=== PATIENT | male | born 1960 | race Caucasian/White ===

== ENCOUNTER 2017-04-28 19:53 | Inpatient (IN) ==
[2017-04-28] MEDS ORDERED: Aspirin 81 MG TAB.CHEW PO ONE (20:15)
[2017-04-28] MEDS ORDERED: Ondansetron 4 MG/2 ML VIAL IVP ONE (20:21)
[2017-04-28] MEDS ORDERED: Nitroglycerin 0.4 MG TAB.SUBL SL ONE (20:22)
[2017-04-28 20:24] LABS: Basophils # 0.1 K/mcL (0.0-0.2); Basophils % 0.6 %; Eosinophils # 0.2 K/mcL (0.0-0.6); Eosinophils % 2.2 %; Hematocrit 45.9 % (37.5-50.1); Hemoglobin 15.8 g/dL (12.9-16.9); Immature Granulocytes % 0.3 % (0-4); Lymphocytes # 0.8 K/mcL (0.6-4.6); Lymphocytes % 9.9 %; Mean Corpuscular HGB Conc 34.4 g/dL (31.6-35.5); Mean Corpuscular Hemoglobin 33.7 pg (28.0-33.3); Mean Corpuscular Volume 97.9 fL (83.0-100.0); Mean Platelet Volume 8.8 fL (9.4-12.4); Monocytes # 0.7 K/mcL (0.0-1.3); Monocytes % 9.3 %; Neutrophils # 6.1 K/mcL (1.6-8.9); Platelet Count 245 K/mcL (140-400); Red Blood Count 4.69 M/mcL (4.19-5.50); Segmented Neutrophils % 77.7 %
[2017-04-28] MEDS: Nitroglycerin 0.4 MG TAB.SUBL SL PRN ×3 (20:26→20:36)
--- NOTE | 2017-04-28 20:31 | Emergency Department Note ---
START Narrative - START START: I examined this patient and my medical decision-making was reviewed with the Resident Physician. I agree with the documented findings, disposition and treatment plan as described except to the extent set forth below. Patient was independently seen and evaluated by myself. Patient was seen with the emergency medicine resident Trey Spence. Please see copy of her notes for details of this ED encounter management and disposition. Briefly: A 57-year-old male smoker diabetic since with neck pain and fatigue. No radiation to the arms. Never had cardiology follow-up for stress test. The HEART score is at 5 which is moderate risk. EKG shows nonspecific changes. He took an aspirin earlier in the day. Patient's systolic is 220 which is much more elevated than this patient ever experienced. Patient will get nitroglycerin to treat for anginal equivalent troponin screening labs and chest x-ray with admission anticipated. Providing 30 minutes critical care service this patient. Admission disposition pending
--- NOTE | 2017-04-28 20:31 | Emergency Department Note ---
Disposition Clinical Impression: Atypical angina Disposition: Admitted As Inpatient Condition: Fair Forms: ED Satisfaction Letter, Work/School Release Time of Disposition: 21:08 Chest Pain HPI - General Chief Complaint: ED General Medical Stated Complaint: Hypertension Time Seen by Provider: 04/28/17 20:06 Source: patient Mode of arrival: ambulatory Limitations: no limitations Vital Signs Reviewed: Yes Nursing Notes Reviewed: Yes - History of Present Illness HPI Narrative: 57-year-old male presents to the ED for high blood pressure. After talking the patient more they state that he has had this left-sided neck pain as well as nausea and vomiting starting today. He has vomited multiple times and is very nauseous. They state that his blood pressure is normally well stable as it is 120/[address] yesterday. They state there is been no new stressors. They state he only takes lisinopril for his blood pressure. He has never seen a facing cutting machine operator or ever had a cardiac stress tests or ever had a heart echo. Patient states she is not having any chest pain only this left- sided neck pain. He is not having any pain going into the arms. He states his high blood pressure was 220/120. As they decided to bring him in. He says he has never had this pain before. There is a family history of acute coronary syndrome from both of his parents at around 50 or 61 years old. Patient does have diabetes high cholesterol as well as COPD. Patient's been taking his medications as prescribed. Patient's not having any other symptoms including headache, blurry vision, abdominal pain, pain with urination, back pain, changes in bowel movements, pain or tingling going down the arms or legs or any generalized numbness, fevers. Severity scale (1-10): 0 - Related Data Allergies Allergy/AdvReac Type Severity Reaction Status Date / Time No Known Allergies Allergy Verified 04/28/17 20:02 Review of Systems: 10 point review of systems done and negative unless otherwise stated in history of present illness. All systems ED: reviewed and negative except as stated. Review of Systems: As Per HPI Chest Pain PMH - Past Medical History Medical history: Reports: COPD, diabetes, GERD, hyperlipidemia, hypertension Psychiatric history: Reports: no psych history - Social History Smoking Status: Former smoker Alcohol use: Reports: heavy, recent Drug use: Reports: marijuana Physical Exam - General General appearance: alert, in no apparent distress - Head Head exam: atraumatic, normocephalic, normal inspection - Eye Eye exam: Present: normal appearance, PERRL, EOMI - ENT ENT exam: normal exam, normal oropharynx, mucous membranes moist - Chest Chest inspection: Present: normal inspection, symmetric chest wall rise. Absent : tenderness - Respiratory Respiratory exam: Present: normal lung sounds bilaterally. Absent: respiratory distress, wheezes, stridor, accessory muscle use, prolonged expiratory phase - Cardiovascular Cardiovascular exam: Present: regular rate, normal rhythm, normal heart sounds - Abdominal Exam Abdominal exam: Present: soft, Non-Tender, normal bowel sounds. Absent: tenderness, distention, guarding, rebound, rigidity - Extremities Exam Extremities exam: Present: normal inspection, full ROM. Absent: tenderness, pedal edema - Expanded Lower Extremity Exam Neurovascular/Tendon exam: Absent: motor deficit, sensory deficit, tendon deficit Gait: observed and normal - Back Exam Back exam: Present: normal inspection, full ROM. Absent: tenderness, CVA tenderness (R), CVA tenderness (L) - Neurological Exam Neurological exam: Present: alert, oriented X3 - Skin Skin exam: Present: warm, dry, intact, normal color Course Course Narrative: 57-year-old male presents the ED with hypertension. After getting more the story this seems more like a chest pain/ACS workup. Patient did have some anginal signs of left neck pain as well as nausea and vomiting that were worrisome. He has never had a cardiac evaluation. We will do basic chest pain workup including CBC, BMP, coags, troponin as well as an EKG and chest x-ray. Patient artery took 325 of chewable aspirin at home so we will not give him here. We will give him a sublingual nitroglycerin to help with the neck pain as well as with his blood pressure. We will place an IV. Patient's most likely disposition will be admission for a chest pain rule out. Vital Signs Temperature 97.5 F L 04/28/17 19:57 Pulse Rate 86 04/28/17 19:57 Respiratory Rate 16 04/28/17 19:57 Blood Pressure 213/124 04/28/17 19:57 O2 Sat by Pulse Oximetry 96 04/28/17 19:57 Temperature 97.5 F L 04/28/17 19:57 Pulse Rate 83 04/28/17 20:36 Respiratory Rate 18 04/28/17 20:36 Blood Pressure 166/102 04/28/17 20:36 O2 Sat by Pulse Oximetry 95 04/28/17 20:36 Oxygen Delivery Oxygen Delivery Room Air Chest Pain - MDM Narrative Medical decision making narrative: 57-year-old male presents the ED complaining of left-sided neck pain as well as nausea and vomiting and hypertension. He states his blood pressure was 220/120 at home he only takes lisinopril and took his normal medications. He states there is been no new stressors in his life. His blood pressure was normal as of yesterday at 120/80. Patient states he is a diabetic as well as having hyperlipidemia and diabetes. Patient is very well controlled and takes all his medications. Patient states this neck pain started on left side on their way to the hospital. He did vomit multiple times there was no preceding illnesses. No one else around him is sick. He did almost vomit while here in the emergency department. After talking to him this seems more like an acute coronary syndrome workup rather than a hypertensive workup. So we did get chest pain labs and imaging which all came back negative including a normal troponin. We also chest x-ray which was normal. EKG showed no acute changes. We gave him sobering will nitroglycerin that did help lower his blood pressure to 160/105 as well as start an IV. Patient took 325 mg aspirin prior to arrival that he had. We also gave him Zofran for his nausea. Due to patient's heart score being 5 and the story being concerning we felt that admission was warranted for this patient. Family and patient both agree. I spoke with the hospitalist Dr. Acevedo who agreed to admit the patient to their service for chest pain rule out. Patient is admitted to their service in stable condition. Chest X-Ray 04/28/17 20:16 IMPRESSION: No acute cardiopulmonary disease. D/ / Alfonso Benítez MD / Alfonso Benítez MD Interpreting Provider: Alfonso Benítez MD - Medical Records Medical records reviewed: Yes I reviewed the patient's medical records. - Lab Data Lab results reviewed: Yes I reviewed the patient's lab results. Result diagrams: 04/28/17 20:15 04/28/17 20:15 Lab Results 04/28/17 04/28/17 04/28/17 Range/Units 20:02 20:15 20:15 WBC (4.3-11.1) K/mcL RBC (4.19-5.50) M/mcL Hgb (12.9-16.9) g/dL Hct (37.5-50.1) % MCV (83.0-100.0) fL MCH (28.0-33.3) pg MCHC (31.6-35.5) g/dL RDW (11.5-14.5) % Plt Count (140-400) K/mcL MPV (9.4-12.4) fL Immature Gran % (0-4) % Seg Neutrophils % % Lymphocytes % % Monocytes % % Eosinophils % % Basophils % % Neutrophils # (1.6-8.9) K/mcL Lymphocytes # (0.6-4.6) K/mcL Monocytes # (0.0-1.3) K/mcL Eosinophils # (0.0-0.6) K/mcL Basophils # (0.0-0.2) K/mcL PT 11.9 (9.4-12.1) Seconds INR 1.1 APTT 25.3 L (26.0-36.0) Seconds Sodium (136-145) mEq/L Potassium (3.5-4.5) mEq/L Chloride (98-109) mEq/L Carbon Dioxide (19-29) mEq/L BUN (8-26) mg/dL Creatinine (0.72-1.25) mg/dL Est GFR ( Amer) (> 60) Est GFR (Non-Af Amer) (> 60) BUN/Creatinine Ratio (6-26) Glucose (70-99) mg/dL POC Glucose 114 H (58-89) Calculated Osmolality (280-300) Calcium (8.6-10.8) mg/dL Troponin I (0-0.03) ng/mL B-Natriuretic Peptide 12 (0-100) pg/mL 04/28/17 04/28/17 04/28/17 Range/Units 20:15 20:15 20:15 WBC 7.8 (4.3-11.1) K/mcL RBC 4.69 (4.19-5.50) M/mcL Hgb 15.8 (12.9-16.9) g/dL Hct 45.9 (37.5-50.1) % MCV 97.9 (83.0-100.0) fL MCH 33.7 H (28.0-33.3) pg MCHC 34.4 (31.6-35.5) g/dL RDW 13.0 (11.5-14.5) % Plt Count 245 (140-400) K/mcL MPV 8.8 L (9.4-12.4) fL Immature Gran % 0.3 (0-4) % Seg Neutrophils % 77.7 % Lymphocytes % 9.9 % Monocytes % 9.3 % Eosinophils % 2.2 % Basophils % 0.6 % Neutrophils # 6.1 (1.6-8.9) K/mcL Lymphocytes # 0.8 (0.6-4.6) K/mcL Monocytes # 0.7 (0.0-1.3) K/mcL Eosinophils # 0.2 (0.0-0.6) K/mcL Basophils # 0.1 (0.0-0.2) K/mcL PT (9.4-12.1) Seconds INR APTT (26.0-36.0) Seconds Sodium 140 (136-145) mEq/L Potassium 3.8 (3.5-4.5) mEq/L Chloride 100 (98-109) mEq/L Carbon Dioxide 28 (19-29) mEq/L BUN 22 (8-26) mg/dL Creatinine 0.85 (0.72-1.25) mg/dL Est GFR ( Amer) > 60 (> 60) Est GFR (Non-Af Amer) > 60 (> 60) BUN/Creatinine Ratio 26 (6-26) Glucose 136 H (70-99) mg/dL POC Glucose (58-89) Calculated Osmolality 295 (280-300) Calcium 9.5 (8.6-10.8) mg/dL Troponin I 0.00 (0-0.03) ng/mL B-Natriuretic Peptide (0-100) pg/mL - Radiology Data Radiology results reviewed: Yes I reviewed the patient's radiology results. - EKG Data EKG attestation: Yes I reviewed and interpreted this EKG. EKG results narrative: EKG done at 2014 reviewed by myself and attending shows normal sinus rhythm at a rate of 86, [place] interval 163, QRS 92, QTC 427 there is no acute ST changes, T- wave abnormalities, signs of hypertrophy or heart strain, heart block, WPW/ Brugada syndrome. There is no old EKG to compare at this time. Heart Score - Score History: Moderately Suspicious EKG: Non Specific repolarisation Disturbance Age: 45-65 Risk Factors: Equal/Greater than 3 risk factor or history of atherosclerotic disease Troponin: Less than normal limit HEART Score Total: 5
[2017-04-28 20:32] LABS: INR 1.1; Prothrombin Time 11.9 Seconds (9.4-12.1)
[2017-04-28 20:35] LABS: Activated Partial Thrombo Time 25.3 Seconds (26.0-36.0)
[2017-04-28 20:36] LABS: BUN/Creatinine Ratio 26 (6-26); Blood Urea Nitrogen 22 mg/dL (8-26); Calcium 9.5 mg/dL (8.6-10.8); Carbon Dioxide 28 mEq/L (19-29); Chloride 100 mEq/L (98-109); Glucose 136 mg/dL (70-99); Osmolality,Calculated 295 (280-300); Potassium 3.8 mEq/L (3.5-4.5); Sodium 140 mEq/L (136-145); eGFR For African Americans > 60 (> 60); eGFR For Non-African Americans > 60 (> 60)
[2017-04-28] MEDS ORDERED: *HR* HYDROcodone/Acet 5/325 mg TABLET PO PRN (21:39)
[2017-04-28] MEDS ORDERED: *HR* Morphine 2 MG/ML SYRINGE IVP PRN (21:39)
[2017-04-28] MEDS ORDERED: Ondansetron 4 MG/2 ML VIAL IVP PRN (21:39)
[2017-04-28] MEDS ORDERED: Naloxone 0.4 MG/ML INJ IVP PRN (21:39)
[2017-04-28] MEDS ORDERED: *HR* Dextrose 50 % in Water (Syg) 50 ML SYRINGE IVP PRN (22:06)
[2017-04-28] MEDS ORDERED: D5% in Water 1,000 ML IVC PRN (22:06)
[2017-04-28] MEDS ORDERED: Dextrose Gel 15 GM PO PRN ×2 (22:06)
--- NOTE | 2017-04-28 22:20 | Internal Med History&Physical ---
Date of Encounter: 04/28/17 Time of Encounter: 21:40 Assessment and Plan (1) Atypical angina Current visit: Yes Status: Acute Given risk factors (HTN, HLD, DM, obesity), HEART score: 4, will admit to rule out ACS monitor serial TNI f/u 2D echo nuclear stress test in am NPO after midnight nitroglycerin SL prn chest pain tele monitoring consider cardiology evaluation if the above tests are abnormal continue ASA, statin, BB (2) Hypertensive urgency Current visit: Yes Status: Acute likely secondary to noncompliance Will continue home dose of Lisinopril 20mg PO qd added Metoprolol 12.5mg PO BID Hydralazine 10mg IV q6h prn SBP>150 if remains hypertensive will adjust medications accordingly will closely monitor BP currently asymptomatic (3) Diabetes mellitus Current visit: Yes Status: Chronic Hold oral antihyperglycemic agents at this time sliding scale insulin algorithm monitor FS and BG ADA diet Qualifiers: Diabetes mellitus type: type 2 Diabetes mellitus complication status: with unspecified complications Diabetes mellitus residential insulin use: without rodent exterminator use Qualified Code(s): E11.8 - Type 2 diabetes mellitus with unspecified complications (4) Hyperlipidemia Current visit: Yes Status: Chronic continue statin therapy Qualifiers: Hyperlipidemia type: unspecified Qualified Code(s): E78.5 - Hyperlipidemia , unspecified (5) GERD (gastroesophageal reflux disease) Current visit: Yes Status: Chronic continue home dose of omeprazole Qualifiers: Esophagitis presence: esophagitis presence not specified Qualified Code(s) : K21.9 - Gastro-esophageal reflux disease without esophagitis (6) DVT prophylaxis Current visit: Yes Status: Acute Heparin SQ (7) Obesity (BMI 30-39.9) Current visit: Yes Status: Chronic (8) Dyspnea, unspecified Current visit: Yes Status: Chronic multifactorial-likely secondary to underlying COPD vs MAICO vs. anatomical abnormality will obtain 2D echo CT neck out any anatomical abnormality (pt complains of a lump sensation which has been making it difficult for him to breathe) O2 supplementation as needed Qualifiers: Dyspnea type: shortness of breath Qualified Code(s): R06.02 - Shortness of breath; R06.00 - Dyspnea, unspecified; R06.01 - Orthopnea Internal Medicine - H&P: HPI Chief complaint: nausea, vomiting, elevated BP Admitted From: Home Plans for Post Hospital Care: Home History of present illness: Mr. Colin is a 57 year old male with PMH of HTN, HLD, DM, COPD secondary to occupational exposure (asbestosis), GERD, and obesity who presents to the ER for evaluation of high blood pressure. Pt seen and examined with sis-in-law present at bedside. Pt reports of feeling nauseous and having one episode of vomiting throughout the day. The sis-in-law checked his blood pressure and he was found to have systolic pressure of 190, she gave him his home dose of Lisinopril and repeated the BP readings and found it to be over 200 which prompted their visit to the ER. He states on their way to the ER, he started to have left sided neck pain. He received nitroglycerin in the ER which resolved his pain and had a mild improvement in his BP. He also reports of chronically having difficulty breathing and states he is unable to lay flat. Reports of a lump in his neck that makes it difficult for him to breath. No other complains at this time. As per sis in law, patient is noncompliant with his home meds and smokes marijuana daily. Pt denies cigarette use and is refusing to quit marijuana use. Code status: full code Past Med Surg Social Fam HX - Past Medical History Medical history: COPD, diabetes, GERD, hyperlipidemia, hypertension Psychiatric history: no psych history - Social History Smoking Status: Former smoker Alcohol use: heavy, recent Drug use: marijuana Internal Medicine - H&P: Meds Atorvastatin 20 mg PO CONT 04/28/17 [History] Budesonide/Formoterol 160/4.5 [Symbicort 160/4.5] 04/28/17 [History] Lisinopril [Zestril] 20 mg PO DAILY 04/28/17 [History] Omeprazole [PriLOSEC] 20 mg PO DAILY 04/28/17 [History] Tiotropium [Spiriva] 04/28/17 [History] metFORMIN [Glucophage] 04/28/17 [History] 3 Allergy/AdvReac Type Severity Reaction Status Date / Time No Known Allergies Allergy Verified 04/28/17 20:02 All Systems PM: A 10-system review of systems was performed and is negative for pertinent findings except as documented above in the HPI. - Constitutional Constitutional: as per HPI - Constitutional Vitals: Temp Pulse Resp BP Pulse Ox 97.9 F 82 16 178/111 93 04/28/17 21:48 04/28/17 21:48 04/28/17 21:48 04/28/17 21:48 04/28/17 21:48 General appearance: Present: cooperative, A&O X 3, no acute distress, obese, answers questions appropriately - Head Head exam: Present: atraumatic, normocephalic - Eye Eye exam: Present: conjuntiva pink, sclera anicteric - Respiratory Respiratory exam: Present: CTAB. Absent: respiratory distress, wheezes - Cardiovascular Cardiovascular exam: Present: RRR, +S1, +S2. Absent: diastolic murmur, gallop, rubs, systolic murmur - GI/Abdominal GI/Abdominal exam: Present: distended (obese), normal bowel sounds, soft, no peritoneal signs. Absent: tenderness - Extremities Exam Extremities exam: Present: warm, radial pulses palpable and symmetrical. Absent : calf tenderness, cyanotic, pedal edema - Neurological Exam Neurological exam: Present: alert, oriented X3 - Psychiatric Psychiatric exam: Present: normal affect, normal mood Internal Med - H&P Results - Labs CBC & Chem 7: 04/28/17 20:15 04/28/17 20:15
[2017-04-28] MEDS ORDERED: Ipratropium/Albuterol Neb 3 ML IH PRN (22:21)
[2017-04-29] MEDS: hydroCHLOROthiazide 25 MG TABLET PO SCH ×2 (00:24→09:58)
[2017-04-29 03:55] LABS: Basophils % 0.5 %; Eosinophils # 0.2 K/mcL (0.0-0.6); Eosinophils % 1.8 %; Hematocrit 42.3 % (37.5-50.1); Hemoglobin 14.4 g/dL (12.9-16.9); Immature Granulocytes % 0.5 % (0-4); Lymphocytes # 1.1 K/mcL (0.6-4.6); Lymphocytes % 12.3 %; Mean Platelet Volume 9.3 fL (9.4-12.4); Monocytes # 0.9 K/mcL (0.0-1.3); Monocytes % 10.2 %; Neutrophils # 6.4 K/mcL (1.6-8.9); Platelet Count 229 K/mcL (140-400); Red Blood Count 4.36 M/mcL (4.19-5.50); Red Cell Distribution Width 13.1 % (11.5-14.5); Segmented Neutrophils % 74.7 %
[2017-04-29 04:18] LABS: BUN/Creatinine Ratio 25 (6-26); Blood Urea Nitrogen 20 mg/dL (8-26); Calcium 9.1 mg/dL (8.6-10.8); Carbon Dioxide 25 mEq/L (19-29); Chloride 100 mEq/L (98-109); Chol/HDL Ratio 2.6 (0-4.9); Cholesterol 163 mg/dL (< 200); Glucose 137 mg/dL (70-99); HDL Cholesterol 63 mg/dL (40-59); LDL Cholesterol,Calculated 46 mg/dL (0-99); Magnesium 1.4 mg/dL (1.6-2.6); Osmolality,Calculated 285 (280-300); Phosphorous 2.4 mg/dL (2.3-4.7); Potassium 3.6 mEq/L (3.5-4.5); Sodium 135 mEq/L (136-145); Triglycerides 270 mg/dL (< 150); eGFR For African Americans > 60 (> 60); eGFR For Non-African Americans > 60 (> 60)
[2017-04-29] MEDS ORDERED: *HR* Heparin 5,000 UNIT/ML VIAL SQ SCH ×2 (06:00→16:00)
[2017-04-29] MEDS: niCARdipine 40 MG/200 ML MLS IVC SCH ×4 (07:03→21:32)
[2017-04-29] MEDS ORDERED: Regadenoson 0.4 MG/5 ML SYRINGE IVP ONE (07:50)
[2017-04-29] MEDS ORDERED: Lisinopril 20 MG TABLET PO SCH (09:00)
[2017-04-29] MEDS ORDERED: hydroCHLOROthiazide 25 MG TABLET PO SCH (09:00)
[2017-04-29] MEDS ORDERED: Magnesium Sulfate 2 GM in D5% in Water 100 ML IVPB ONE (11:01)
--- NOTE | 2017-04-29 11:42 | Internal Med Progress Note ---
<ArchanaChace allen - Last Filed: 04/29/17 11:32> Date of Encounter: 04/29/17 Time of Encounter: 11:33 - Assessment and plan (1) Atypical angina Current Visit: Yes Status: Acute Assessment and plan: Chest pain is resolved at this time. Possibly related to elevated blood pressures. Cardiac stress test and echocardiogram performed this morning and results are pending patient is on a statin at home, will add aspirin. (2) Hypertensive urgency Current Visit: Yes Status: Acute Assessment and plan: Patient had systolic blood pressures greater than 200. Patient was placed on nicardipine drip and his blood pressures improved. Patient was started on his home lisinopril 20 mg daily today and we have added hydrochlorothiazide 25 mg daily and metoprolol 50 mg twice a day. Will attempt to wean off Cardene drip. Cardiac workup as above. (3) Diabetes mellitus Current Visit: Yes Status: Chronic Assessment and plan: Sugars have been under good control. Continue sliding scale insulin. Qualifiers: Diabetes mellitus type: type 2 Diabetes mellitus complication status: with unspecified complications Diabetes mellitus terminal gauger supervisor insulin use: without terminal gauger supervisor use Qualified Code(s): E11.8 - Type 2 diabetes mellitus with unspecified complications (4) Hyperlipidemia Current Visit: Yes Status: Chronic Assessment and plan: Continue statin Qualifiers: Hyperlipidemia type: unspecified Qualified Code(s): E78.5 - Hyperlipidemia , unspecified (5) GERD (gastroesophageal reflux disease) Current Visit: Yes Status: Chronic Assessment and plan: Continue daily PPI Qualifiers: Esophagitis presence: esophagitis presence not specified Qualified Code(s) : K21.9 - Gastro-esophageal reflux disease without esophagitis - Subjective Interval history: Patient seen and examined at bedside. Patient has minimal complaints at this time. He reports mild cramps in his legs and abdominal wall. Otherwise he denies chest pain, abdominal pain shortness of breath, nausea, vomiting, diarrhea. - Constitutional Vitals: Temp Pulse Resp BP Pulse Ox 98.1 F 91 20 132/76 95 04/29/17 07:51 04/29/17 10:15 04/29/17 10:15 04/29/17 10:15 04/29/17 10:15 General appearance: Present: cooperative, A&O X 3, no acute distress, obese, answers questions appropriately - Respiratory Respiratory exam: Present: wheezes (rare scattered). Absent: CTAB, rales, rhonchi - Cardiovascular Cardiovascular exam: Present: RRR. Absent: gallop, rubs, systolic murmur - GI/Abdominal GI/Abdominal exam: Present: normal bowel sounds, soft. Absent: distended, tenderness - Extremities Exam Extremities exam: Present: pedal edema (trace), warm. Absent: tenderness - Neurological Exam Neurological exam: Present: alert, CN II-XII intact, oriented X3, no focal deficits Internal Medicine: Result - Labs CBC & Chem 7: 04/29/17 03:22 04/29/17 03:22 Labs: Short CBC 04/29/17 Range/Units 03:22 WBC 8.5 (4.3-11.1) K/mcL Hgb 14.4 (12.9-16.9) g/dL Hct 42.3 (37.5-50.1) % Plt Count 229 (140-400) K/mcL Neutrophils # 6.4 (1.6-8.9) K/mcL BMP 04/29/17 03:22 Sodium 135 L Potassium 3.6 Chloride 100 Carbon Dioxide 25 BUN 20 Creatinine 0.80 Glucose 137 H Calcium 9.1 Cardiac Enzymes 04/29/17 Range/Units 03:22 Troponin I 0.01 (0-0.03) ng/mL - ABG Interpretation ABG results: PT/INR, D-dimer PT 11.9 Seconds (9.4-12.1) 04/28/17 20:15 - Impressions Impressions Soft Tissue Neck CT 04/28/17 22:07 IMPRESSION: No neck mass detected. D/ / Santiago Encinas MD / Santiago Encinas MD Interpreting Provider: Santiago Encinas MD Consult Discharge Plan - Plan Referrals: NONE,PCP [Primary Care Provider] - <Vivek Morel - Last Filed: 04/29/17 17:42> Date of Encounter: 04/29/17 - Assessment and plan (1) Hypertensive urgency Current Visit: Yes Status: Acute (2) Atypical angina Current Visit: Yes Status: Acute (3) Diabetes mellitus Current Visit: Yes Status: Chronic Qualifiers: Diabetes mellitus type: type 2 Diabetes mellitus complication status: with hyperglycemia Diabetes mellitus jail insulin use: without terminal gauger supervisor use Qualified Code(s): E11.65 - Type 2 diabetes mellitus with hyperglycemia (4) Alcohol abuse Current Visit: Yes Status: Chronic (5) GERD (gastroesophageal reflux disease) Current Visit: Yes Status: Chronic Qualifiers: Esophagitis presence: esophagitis presence not specified Qualified Code(s) : K21.9 - Gastro-esophageal reflux disease without esophagitis (6) Hyperlipidemia Current Visit: Yes Status: Chronic Qualifiers: Hyperlipidemia type: mixed hyperlipidemia Qualified Code(s): E78.2 - Mixed hyperlipidemia (7) Obesity (BMI 30-39.9) Current Visit: Yes Status: Chronic - Constitutional Vitals: Temp Pulse Resp BP Pulse Ox 97.5 F L 85 16 135/89 95 04/29/17 16:00 04/29/17 16:00 04/29/17 16:00 04/29/17 16:00 04/29/17 16:00 Internal Medicine: Result - Labs CBC & Chem 7: 04/29/17 03:22 04/29/17 03:22 - ABG Interpretation ABG results: PT/INR, D-dimer PT 11.9 Seconds (9.4-12.1) 04/28/17 20:15 - Attending Attestation I examined this patient and my medical decision-making was reviewed with the Resident Physician on 04/29/17. I agree with the documented findings, disposition and treatment plan as described except to the extent set forth below. Mr Colin is currently admitted for hypertensive emergency and chest pain with concern for ACS. He remains moderate to high risk due to potential for worsening cardiac status. My Cristi feels OK at this time. No CP or SOB. Has had some wheezing. No fever or chills. Had stress test today. Has been weaned off Cardene drip. Exam Alert. Comfortable Mucus membranes dry Heart reg Scant end exp wheeze Abd soft I/P 1. [place] - stress test negative today. Continue medical management with BB, BETTE and statin 2. HLD 3. HTN emergency - BP overall improved. Off Cardene and on PO meds at this time. PRN meds ordered 4. ETOH - CIWA added. Further diagnoses and plan as above.
[2017-04-29] MEDS ORDERED: diazePAM 10 MG/2 ML SYRINGE IVP PRN ×10 (12:56→19:31)
[2017-04-29] MEDS ORDERED: Thiamine (B-1) 100 MG TABLET PO SCH (13:00)
[2017-04-29] MEDS ORDERED: Vitamin B Complex/Vit C/Vit E 1 EACH TABLET PO SCH (13:00)
[2017-04-29] MEDS ORDERED: Folic Acid 1 MG TABLET PO SCH (13:00)
[2017-04-29] MEDS: Ipratropium/Albuterol Neb 3 ML IH SCH ×3 (13:05→20:14)
--- NOTE | 2017-04-29 13:09 | Electrocardiograph Report ---
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
[2017-04-29] MEDS ORDERED: Insulin LISPRO 300 UNITS/3 ML VIAL SQ SCH ×4 (16:30→22:06)
[2017-04-29] MEDS ORDERED: Perflutren Lipid Microsphere 1.3 ML in 0.9 % Sodium Chloride 8.7 ML IVP ONE (17:15)
[2017-04-29] MEDS ORDERED: Nitroglycerin 0.4 MG TAB.SUBL SL PRN (19:31)
[2017-04-29] MEDS ORDERED: *HR* HYDROcodone/Acet 5/325 mg TABLET PO PRN (19:31)
[2017-04-29] MEDS ORDERED: Ondansetron 4 MG/2 ML VIAL IVP PRN (19:31)
[2017-04-29] MEDS ORDERED: *HR* Morphine 2 MG/ML SYRINGE IVP PRN (19:31)
[2017-04-29] MEDS ORDERED: *HR* Dextrose 50 % in Water (Syg) 50 ML SYRINGE IVP PRN (19:31)
[2017-04-29] MEDS ORDERED: D5% in Water 1,000 ML IVC PRN (19:31)
[2017-04-29] MEDS ORDERED: Dextrose Gel 15 GM PO PRN ×2 (19:31)
[2017-04-29] MEDS ORDERED: Naloxone 0.4 MG/ML INJ IVP PRN (19:31)
[2017-04-29] MEDS: Budesonide/Formoterol 160/4.5 MDI IH SCH (20:14)
[2017-04-29] MEDS ORDERED: Budesonide/Formoterol 160/4.5 MDI IH SCH (22:00)
[2017-04-29] MEDS: *HR* Heparin 5,000 UNIT/ML VIAL SQ SCH (23:10)
[2017-04-30] MEDS: Ipratropium/Albuterol Neb 3 ML IH SCH ×5 (00:02→15:51)
[2017-04-30] MEDS: niCARdipine 40 MG/200 ML MLS IVC SCH (02:31)
[2017-04-30] MEDS: Budesonide/Formoterol 160/4.5 MDI IH SCH (07:55)
[2017-04-30] MEDS: *HR* Heparin 5,000 UNIT/ML VIAL SQ SCH (08:30)
[2017-04-30] MEDS: Insulin LISPRO 300 UNITS/3 ML VIAL SQ SCH ×2 (08:30→12:28)
[2017-04-30] MEDS ORDERED: Folic Acid 1 MG TABLET PO SCH (09:00)
[2017-04-30] MEDS ORDERED: hydroCHLOROthiazide 25 MG TABLET PO SCH (09:00)
[2017-04-30] MEDS ORDERED: Aspirin Enteric Coated 81 MG Tablet PO SCH ×2 (09:00)
[2017-04-30] MEDS ORDERED: Vitamin B Complex/Vit C/Vit E 1 EACH TABLET PO SCH (09:00)
[2017-04-30] MEDS ORDERED: Thiamine (B-1) 100 MG TABLET PO SCH (09:00)
[2017-04-30] MEDS ORDERED: Lisinopril 20 MG TABLET PO SCH (09:00)
[2017-04-30 12:09] VITALS: BP 118/80
--- NOTE | 2017-04-30 14:20 | Discharge Summary ---
Date of Encounter: 04/30/17 Time of Encounter: 14:13 - Discharge Diagnosis (1) Hypertensive urgency Priority: Primary Status: Acute (2) Atypical angina Priority: Primary Status: Acute (3) Diabetes mellitus Priority: Secondary Status: Chronic Qualifiers: Diabetes mellitus type: type 2 Diabetes mellitus complication status: without complication Diabetes mellitus exterminator insulin use: without correction use Qualified Code(s): E11.9 - Type 2 diabetes mellitus without complications (4) Hyperlipidemia Priority: Secondary Status: Chronic Qualifiers: Hyperlipidemia type: mixed hyperlipidemia Qualified Code(s): E78.2 - Mixed hyperlipidemia (5) GERD (gastroesophageal reflux disease) Priority: Secondary Status: Chronic Qualifiers: Esophagitis presence: esophagitis presence not specified Qualified Code(s) : K21.9 - Gastro-esophageal reflux disease without esophagitis - Discharge Medications Prescriptions: Albuterol Sulfate [Proventil Hfa] 6.7 gm IH 2-4XD PRN #1 hfa.aer.ad PRN Reason: Shortness Of Breath Lisinopril [Zestril] 20 mg PO DAILY #30 tablet Metoprolol [Lopressor] 50 mg PO BID #30 tablet Omeprazole [PriLOSEC] 20 mg PO DAILY@0630 #30 capsule. Home Medications: Albuterol Sulfate [Proventil Hfa] 6.7 gm IH 2-4XD PRN #1 hfa.aer.ad 04/30/17 [Rx ] Aspirin Enteric Coated [Aspirin EC] 81 mg PO DAILY #0 tablet. 04/30/17 [Rx] Folic Acid 1 mg PO DAILY tablet 04/30/17 [Rx] Lisinopril [Zestril] 20 mg PO DAILY #30 tablet 04/30/17 [Rx] Metoprolol [Lopressor] 50 mg PO BID #30 tablet 04/30/17 [Rx] Omeprazole [PriLOSEC] 20 mg PO DAILY@0630 #30 capsule. 04/30/17 [Rx] Thiamine (B-1) [Vitamin B-1] 100 mg PO DAILY tablet 04/30/17 [Rx] Vitamin B Complex/Vit C/Vit E [Stresstab] 1 each PO DAILY tablet 04/30/17 [Rx] Allergies/Adverse Reactions: 3 Allergy/AdvReac Type Severity Reaction Status Date / Time No Known Allergies Allergy Verified 04/28/17 20:02 Date of admission: 04/29/17 12:58 Primary care physician: PCP NONE Discharging clinician: Rachelle El Anticipated date of discharge: 04/30/17 - Patient Status Disposition: Home, Self-Care Condition: Good Overall status at discharge: patient is back to baseline - Discharge Instructions Follow Up With: NONE,PCP [Primary Care Provider] - - Diet and Activity Activity: increase activity as tolerated Diet: advance to your usual diet, diabetic diet, low fat, low cholesterol, low salt diet Hospital course: Mr. Colin is a 57 year old male admitted for chest pain and malignant hypertension. Apparently patient is noncompliant. In any case he was restarted on blood pressure medicine and IV hydralazine and now his blood pressure is quite stable on oral medicines. He was ruled out for VT with help of negative cardiac enzymes and EKG. He underwent a negative stress tests and an unremarkable echocardiogram with 70% with no significant wall motion or valvular abnormality. Commended not to smoke and albuterol inhaler as prescribed. Patient does state diabetes medicine at home and he is asked to continue the same. He has most from [place] and has plan to see his [id number] doctor and advised to make the appointment right away. Patient was noted to have fatty liver and is asymptomatic but to his lipid profile is also noted elevated. He is advised to check with his doctor to see if his liver is good enough to tolerate statins but in the meantime he can try a podiatry file for which counseling has been provided and see if his cholesterol improved in next 3 months. Low-dose aspirin added. - Time Spent with Patient Total time spent providing and/or coordinating discharge services: Greater than 30 minutes - Constitutional Vitals: Temp Pulse Resp BP Pulse Ox 97.9 F 85 16 118/80 95 04/30/17 12:08 04/30/17 12:08 04/30/17 12:08 04/30/17 12:08 04/30/17 12:08 General appearance: Present: cooperative, A&O X 3, no acute distress, obese, answers questions appropriately - Head Head exam: Present: atraumatic, normocephalic - Eye Eye exam: Present: PERRL, conjuntiva pink, sclera anicteric Pupils: Present: PERRL - Neck Neck exam general surgery: Present: supple, trachea midline. Absent: lymphadenopathy - Respiratory Respiratory exam: Present: CTAB. Absent: accessory muscle use, rales, rhonchi, wheezes - Cardiovascular Cardiovascular exam: Present: RRR, +S1, +S2. Absent: diastolic murmur, gallop, rubs, systolic murmur - GI/Abdominal GI/Abdominal exam: Present: normal bowel sounds, soft, no peritoneal signs. Absent: distended, tenderness - Extremities Exam Extremities exam: Present: warm, radial pulses palpable and symmetrical. Absent : calf tenderness, cyanotic, pedal edema - Neurological Exam Neurological exam: Present: CN II-XII intact, oriented X3, no focal deficits. Absent: pronater drift, facial droop, speech deficit - Skin Skin exam: Present: dry, intact
== END 2017-04-30 16:03 | disposition home or self-care (01) | DRG 199 ==
LOC: EMEROO 19:53 → 3BNU 19:53 → SUATTDRO 21:22 → 3BNU 21:28 → ICNU 04-29 03:13 → 3ANU 04-29 21:18
PROVIDERS: ADMIT Internal Medicine; ATTEND Internal Medicine